=== PATIENT | female | born 1940 | race American Indian/Alaskan Native ===

== ENCOUNTER 2016-09-22 06:52 | Inpatient (IN) | payer MEDICARE ==
[2016-09-22] MEDS ORDERED: ECOTRIN PO NR (07:22)
[2016-09-22] MEDS ORDERED: K-DUR PO ONE (07:26)
[2016-09-22] MEDS ORDERED: PLAVIX PO ONE (07:38)
[2016-09-22] MEDS ORDERED: HALFPRIN EC PO ONE ×2 (07:38→07:40)
[2016-09-22] MEDS ORDERED: NACL 0.9% 500 ML 500 ML IV SCH (08:00)
[2016-09-22] MEDS ORDERED: HEPARIN 10,000 UNITS/10 ML ONE (08:17)
[2016-09-22] MEDS ORDERED: CALAN ONE (08:17)
[2016-09-22] MEDS ORDERED: HEPARIN/NS 5000 UNIT/500ML(CATH LAB) 1,000 ML IR ONE (08:17)
[2016-09-22] MEDS: VERSED ONE ×2 (08:54→09:09)
[2016-09-22] MEDS: XYLOCAINE 2% INFILTRATI ONE ×3 (08:55→09:18)
[2016-09-22] MEDS: SUBLIMAZE ONE ×3 (08:55→09:17)
[2016-09-22] MEDS: NITROGLYCERIN SYRINGE 3 ML ONE ×2 (09:14→09:36)
[2016-09-22] MEDS ORDERED: APRESOLINE ONE (09:18)
[2016-09-22] MEDS ORDERED: NACL 0.9% 100 ML ONE (09:30)
[2016-09-22] MEDS ORDERED: WATER FOR INJ (PF) 10 ML ONE (09:30)
[2016-09-22] MEDS ORDERED: HEPARIN/NS 5000 UNIT/500ML(CATH LAB) 500 ML IR ONE (09:31)
[2016-09-22] MEDS: ANGIOMAX IV ONE ×2 (09:35→09:37)
[2016-09-22] MEDS ORDERED: NITROGLYCERIN SYRINGE 3 ML ONE (09:46)
[2016-09-22] MEDS ORDERED: ALUM-MAG HYDROX-SIMETH 200-200-20MG/5ML ONE (09:50)
[2016-09-22] MEDS ORDERED: BRILINTA ONE (09:50)
[2016-09-22] MEDS ORDERED: NACL 0.9% 1000 ML 1,000 ML IV SCH (11:00)
[2016-09-22] MEDS ORDERED: HCTZ PO SCH (12:00)
--- NOTE | 2016-09-22 12:02 | Short Stay Summary ---
Short Stay Documentation Date of service: 09/22/16 - History H&P: obtained from office - Allergies and Medications Current Medications: Allergies codeine Adverse Reaction (Verified 09/22/16 08:37) Nausea Home Medications Medication Instructions Recorded Confirmed Last Taken Type Aspirin EC [Aspirin Enteric Coated 81 mg PO QDAY 05/17/13 09/22/16 09/21/16 History TAB] Carvedilol 12.5 mg PO BID 05/17/13 09/22/16 09/21/16 History Clopidogrel Bisulfate [Clopidogrel] 75 mg PO DAILY 05/17/13 09/22/16 09/21/16 History Insulin Glargine,Hum.rec.anlog 15 units SQ HS 05/17/13 09/22/16 09/21/16 History [Lantus Solostar] Lovastatin 40 mg PO HS 05/17/13 09/22/16 09/21/16 History glipiZIDE [Glipizide ER] 10 mg PO DAILY 05/17/13 09/22/16 09/21/16 History Famotidine [Pepcid] 20 mg PO BID 09/22/16 09/22/16 09/21/16 History Hydrochlorothiazide [HCTZ] 25 mg PO DAILY 09/22/16 09/22/16 09/21/16 History Lisinopril [Zestril TAB] 20 mg PO BID 09/22/16 09/22/16 09/21/16 History amLODIPine [Norvasc] 2.5 mg PO DAILY 09/22/16 09/22/16 09/21/16 History Active Medications Amlodipine Besylate (Norvasc) 2.5 mg PO DAILY [facility] Aspirin (Baby Aspirin) 81 mg PO QDAY RIAZ Carvedilol (Coreg) 12.5 mg PO BID RIAZ Famotidine (Pepcid) 20 mg PO BID RIAZ Glipizide (Glucotrol Xl) 10 mg PO QDDIAB RIAZ Hydrochlorothiazide (Hctz) 25 mg PO DAILY RIAZ Sodium Chloride (Nacl 0.9% 500 Ml) 500 mls @ 50 mls/hr IV DIRECT RIAZ Stop: 09/22/16 17:59 Last Admin: 09/22/16 07:40 Dose: 50 mls/hr Sodium Chloride (Nacl 0.9% 1000 Ml) 1,000 mls @ 75 mls/hr IV DIRECT RIAZ Stop: 09/22/16 22:59 Insulin Aspart (Novolog) 0 units SUB-Q ACHS RIAZ PRN Reason: Protocol Insulin Detemir (Levemir) 15 units SUB-Q QHS RIAZ Isosorbide Mononitrate (Imdur) 30 mg PO QDAY RIAZ Lisinopril (Zestril) 20 mg PO BID RIAZ Simvastatin (Zocor) 20 mg PO QHS RIAZ Ticagrelor (Brilinta) 90 mg PO BID RIAZ - Brief post op/procedure progress note Date of procedure: 09/22/16 Pre-op diagnosis: chest pain, dyspnea Procedure: Left heart cath and PCI of OM2 - Hospital course Hospital course: The patient is a 76 year old female with known CAD s/p PCI of the RCA in 2007, hypertension, hyperlipidemia who presented for left heart cath on 09/22/16. She underwent left heart cath and PCI of the OM2 with a BIB (Resolute 2.5 x 12). Cath revealed left main patent, LAD patent, distal 20%. RCA proximal and distal stent patent, mid diffuse 50-60%, bifurcation 50-60%. She was monitored on telemetry overnight and has remained chest pain free and hemodynamically stable. She will be discharged home today in stable condition. Follow up in the [place] office for a BMP on 09/30/16 at 10:00 am. Follow up appointment with Dr. Cody in the [place] office on 10/05/16 at 11:15 am. - Disposition Condition at discharge: Stable Disposition: DISCHARGED TO HOME OR SELFCARE - Discharge Diagnoses (1) S/P PTCA (percutaneous transluminal coronary angioplasty) Status: Acute (2) CAD (coronary artery disease) Status: Chronic Qualifiers: Coronary Disease-Associated Artery/Lesion type: C [place] vs. transplanted heart: N Associated angina: A (3) Hypertension Status: Chronic Qualifiers: Hypertension type: H (4) Diabetes Status: Chronic Qualifiers: Diabetes mellitus type: D Diabetes mellitus complication status: D Diabetes mellitus complication detail: D Diabetic retinopathy severity: D Proliferative retinopathy type: P Diabetes mellitus macular edema: D Diabetes mellitus prison insulin use: D Laterality: L Chronic kidney disease stage: C (5) Hyperlipidemia Status: Chronic Qualifiers: Hyperlipidemia type: H Short Stay Discharge Plan Activity: advance as tolerated Weight Bearing Status: Weight Bear as Tolerated Diet: low fat, low cholesterol, diabetic Wound: keep clean and dry Additional Instructions: Follow up appointment with Dr. Cody in the [place] office on 10/05/16 at 11: 15 am. Follow up with: PRIMARY CARE, [Primary Care Provider] - 7 Days Prescriptions: ISOSORBIDE MONOnitrate [Imdur ER] 30 mg PO QDAY #30 tablet Spironolactone [Aldactone] 25 mg PO QDAY #30 tablet Ticagrelor [Brilinta] 90 mg PO BID #60 tablet
--- NOTE | 2016-09-22 12:13 | Cardiac Catherization Report ---
LEFT HEART CATHETERIZATION/PERCUTANEOUS CORONARY ARTERY INTERVENTION/INTRAVASCULAR ULTRASOUND REPORT CLINICAL INFORMATION: A 76-year-old female with morbid obesity, hypertension, cholesterol, known coronary artery disease, in 2008 PCI of the RCA with drug-eluting Taxus stents, 2.75 and 2.5. Cardiac catheterization in 2012 revealed patent stents with mid section diffuse 20% and OM1 20% with patent LAD. The patient presents with shortness of breath with exertion, Barron classification 3 despite medications, beta blockers and calcium channel blockers, is here for a left heart catheterization. Left heart catheterization performed via the right femoral artery, sterile technique, local anesthesia, 5-[place] groin sheath inserted. Radial approach is unattainable. Left system engaged with a JL3.5 catheter. FINDINGS: 1. Left main is a medium to large caliber vessel that is patent. LAD is a medium caliber vessel that patent proximally and mid distally, it becomes small caliber, has a 20% lesion, diagonal 1 and diagonal 2 are small caliber vessels, patent. Circumflex and AV groove, OM1 is a small to medium caliber vessel, patent. Circ goes into a medium caliber OM2. The proximal section OM2 has an 80% lesion. Distal circ small caliber vessel, patent. RCA engaged with JR4 catheter. Proximal stent is patent. Distal stent is patent, in between, the mid has a long diffuse 50-60%. Prior to bifurcation, there is a 50% lesion of a small caliber, distal RCA has a small caliber PDA, PLV, normal LV function, EF 55-60%. LVEDP of 20-24 mmHg. LV was 200 mmHg, aortic was 202/85 mmHg. No gradient across the aortic valve on pullback. In view of recurrent symptoms and 80% lesion, mid circ, proceeded with PCI of the OM2, exchange of 5-[place] groin sheath to a 6-[place] groin sheath. 2. Engage the left system with EBU 3.5 guiding catheter and give Angiomax. 3. Crossed the distal OM2 with a short M[place] wire. 4. Intravascular ultrasound showed distal reference vessel 2.5 x 2.6, proximal 2.5 x 2.7 and significant stenosis, MLA less than 2.5 mm2. 5. Indirect stent to a drug-eluting Resolute 2.5 x 12 at 12 atmospheres. 6. Repeat angiogram with excellent angiographic result. No dissection or perforation noted. 7. Remove coronary wire, repeat angiogram, continued REBECCA 3 flow, reduced stenosis to 0%, no dissection or perforation noted. 8. 6-[place]icaraguan guiding catheter taken over a guidewire, 6-[place]icar[place] groin sheath sewn in. No hematoma. No bleeding. SUMMARY: 1. Successful PCI of the OM2 with a drug-eluting Resolute 2.5 x 12, 80% lesion with IVUS directed, MLA less than 2.5 mm2. 2. Left main patent, LAD patent, but distally 20%. 3. RCA proximal and distal stent patent, but mid diffuse 50-60%, bifurcation 50-60%. 4. Continue aspirin, add Brilinta. We will add nitrates, and the patient will have post-PCI care. Discussed this in detail with the patient and the patient's family. JOB# [id number] MARÍA/BROWN
[2016-09-22] MEDS: COREG PO SCH ×2 (13:52→22:02)
[2016-09-22] MEDS: GLUCOTROL XL PO SCH (13:52)
[2016-09-22] MEDS: NORVASC PO SCH (13:53)
[2016-09-22] MEDS ORDERED: TYLENOL PO PRN (17:04)
[2016-09-22] MEDS ORDERED: TYLENOL ONE (17:11)
[2016-09-22] MEDS: ZESTRIL PO SCH ×2 (17:21→22:02)
[2016-09-22] MEDS ORDERED: ZOCOR PO SCH (22:00)
[2016-09-22] MEDS ORDERED: NON-FORMULARY (Lovastatin [Lovastatin] 40 MG) PO SCH (22:00)
[2016-09-22] MEDS ORDERED: LEVEMIR SUB-Q SCH (22:00)
[2016-09-22] MEDS ORDERED: NON-FORMULARY (Insulin Glargine,Hum.Rec.Anlog [Lantus Solostar] 15 UNITS) SQ SCH (22:00)
[2016-09-22] MEDS: PEPCID PO SCH ×2 (22:01→23:46)
[2016-09-22] MEDS: BRILINTA PO SCH (22:01)
[2016-09-22] MEDS: NOVOLOG SUB-Q SCH (23:45)
[2016-09-23] MEDS ORDERED: AMBIEN PO ONE (00:30)
[2016-09-23 05:50] LABS: Basophils % (Auto) 0.4 % (0.0-1.8); Hematocrit 35.6 % (30.3-42.9); Hemoglobin 11.6 gm/dl (10.1-14.3); Mean Corpuscular HGB Conc 33 % (30-34); Mean Corpuscular Hemoglobin 29 pg (28-32); Mean Corpuscular Volume 88 fl (79-97); Platelet Count 267 K/mm3 (140-440); Red Blood Count 4.06 M/mm3 (3.65-5.03); White Blood Count 7.6 K/mm3 (4.5-11.0)
[2016-09-23 06:11] LABS: Creatine Kinase MB 1.1 ng/mL (0.0-4.0)
[2016-09-23 06:13] LABS: Anion Gap 17 mmol/L; BUN/Creatinine Ratio 18.33; Blood Urea Nitrogen 11 mg/dL (7-17); Calcium 8.4 mg/dL (8.4-10.2); Carbon Dioxide 25 mmol/L (22-30); Chloride 104.1 mmol/L (98-107); Creatine Kinase 176 units/L (30-135); Glucose 100 mg/dL (65-100); Potassium 3.1 mmol/L (3.6-5.0); Sodium 143 mmol/L (137-145)
--- NOTE | 2016-09-23 07:29 | Admit Criteria Form ---
Admission Criteria Documentation: TELEMETRY CARE Telemetry Admission Guidelines (Place 'X' for any and all applicable criteria): Admission to telemetry [A] may be indicated for ANY ONE of the following(1)(2)(3 )(4)(5): [X]I. Cardiac disease, including ANY ONE of the following (9)(10)(11)(12)(13 ): [ ]a) Postacute NV [ ]b) Low-risk patients with ST-segment elevation NV who have undergone successful percutaneous coronary intervention [ ]c) Unstable angina [ ]d) Suspected NV (until it is ruled out) [ ]e) Post cardiac surgery (first 48 to 72 hours unless complications occur) [ ]f) Acute arrhythmias (including significant tachycardia or bradycardia) [B] [ ]g) Firing of an implantable cardioverter defibrillator [C] [ ]h) Suspected pacemaker or implantable cardioverter defibrillator malfunction (10) [ ]i) New administration or adjustment of an antiarrhythmic drug [D ] [ ]j) Child admitted for acute congestive heart failure [ ]j) Long QT syndrome [ ]k) Advanced heart block (eg, second-degree Mobitz type II, third- degree heart block) [ ]l) Acute myocarditis or pericarditis [X]m) Short-term (ambulatory or inpatient) monitoring after a cardiac procedure as indicated by ANY ONE of the following [E]: [ ]i) Electrophysiologic studies [X]ii) Percutaneous coronary intervention with stent placement [ ]iii) Pacemaker placement with cardiac conduction defect [ ]iv) Implantable cardiac defibrillator placement [ ]II. Drug overdose or poisoning with substance that causes arrhythmias or QT prolongation (eg, phenothiazines, sympathomimetic agents, cyclic antidepressants, digitalis, antiarrhythmic drugs)(15) [ ]III. Short-term (ambulatory or inpatient) monitoring after therapeutic or diagnostic procedure requiring conscious sedation or anesthesia (eg, endoscopy, elective cardioversion) [ ]IV. Acute cerebrovascular even[F](18) [ ]V. Massive blood transfusion (eg, at least 10 units of packed red blood cells in 24 hours) [ ]. Variceal bleeding after endoscopy, sclerotherapy, or IV vasopressin [ ]VII. Uncorrected electrolyte abnormalities associated with an increased risk of dangerous arrhythmia [G]; examples include [ ]a) Hyperkalemia with attributable ECG changes [ ]b) Potassium greater than 6.5 mmol/L (mEq/L) in a patient without history of chronic renal disease [ ]c) Prolonged QT attributed to hypokalemia, hypomagnesemia, or hypocalcemia [ ]VIII.Unexplained syncope or other neurologic event suspected of being due to arrhythmia due to a finding that increases risk; examples include(19)(20)(21): [ ]a) High-risk ECG findings (eg, bifascicular block, bradycardia, abnormal QT interval, ventricular pre- excitation) [ ]b) History of previous syncope due to arrhythmia [ ]c) Abnormal ventricular function (eg, reduced ejection fraction ) [ ]d) Exertional or supine syncope [ ]e) Concerning syncope characteristics (eg, sudden loss of consciousness without prodrome) [ ]f) Family history of sudden [ ]g) Use of arrhythmogenic medication [ ]h) Suspected cardiac ischemia [ ]i) Known channelopathy (eg, long QT syndrome, Brugada syndrome, or catecholaminergic paroxysmal ventricular tachycardia) [ ]j) Known structural heart disease (eg, hypertrophic cardiomyopathy , severe valvular disease) [ ]k) Palpitations preceding syncope The original [employer] content created by [employer] has been revised. The portions of the content which have been revised are identified through the use of italic text or in bold, and [facility] has neither reviewed nor approved the modified material. All other unmodified content is copyright [employer]. Please see references footnoted in the original [employer] edition 2016 Admission Criteria Met: Yes
[2016-09-23] MEDS ORDERED: K-DUR PO ONE (08:30)
[2016-09-23] MEDS: NOVOLOG SUB-Q SCH ×2 (09:23→11:50)
[2016-09-23] MEDS: PEPCID PO SCH (09:24)
[2016-09-23] MEDS: ZESTRIL PO SCH (09:24)
[2016-09-23] MEDS: COREG PO SCH (09:25)
[2016-09-23] MEDS: NORVASC PO SCH (09:26)
[2016-09-23] MEDS: BRILINTA PO SCH (09:26)
[2016-09-23] MEDS: GLUCOTROL XL PO SCH (09:31)
[2016-09-23] MEDS ORDERED: ALDACTONE PO SCH (10:00)
[2016-09-23] MEDS ORDERED: IMDUR PO SCH (10:00)
[2016-09-23] MEDS ORDERED: BABY ASPIRIN PO SCH (10:00)
[2016-09-23] MEDS ORDERED: HALFPRIN EC PO SCH (10:00)
--- NOTE | 2016-09-23 10:14 | XRay Report ---
PORTABLE CHEST: INDICATION: Post PCI. COMPARISON: 10/24/2010 FINDINGS: Portable, frontal chest radiograph demonstrates stable cardiomediastinal silhouette/borderline cardiomegaly. Dense aortic knob calcifications. Slight hyperinflation without pleural effusions or CHF. EKG leads. Stable bones, including bilateral shoulder degenerative changes. CONCLUSION: No acute disease in the chest with few other findings, as above. Thank you for the opportunity to participate in this patient's care.
[2016-09-23 15:48] VITALS: BP 132/66
== END 2016-09-23 16:25 | disposition home or self-care (01) | DRG 247 ==
LOC: OPU 06:52 → 4A 11:05
PROVIDERS: ADMIT Internal Medicine; ATTEND Internal Medicine
PROC: 4A023N7 Measurement of Cardiac Sampling and Pressure, Left Heart, Percutaneous Approach (ICD-10-PCS; principal; 2016-09-22)
PROC: 027034Z Dilation of Coronary Artery, One Artery with Drug-eluting Intraluminal Device, Percutaneous Approach (ICD-10-PCS; 2016-09-22)
PROC: B2111ZZ Fluoroscopy of Multiple Coronary Arteries using Low Osmolar Contrast (ICD-10-PCS; 2016-09-22)
DX: I25.10 Atherosclerotic heart disease of native coronary artery without angina pectoris (principal); I10 Essential (primary) hypertension; E78.5 Hyperlipidemia, unspecified; E66.9 Obesity, unspecified; E11.51 Type 2 diabetes mellitus with diabetic peripheral angiopathy without gangrene; Z88.5 Allergy status to narcotic agent; Z95.5 Presence of coronary angioplasty implant and graft; Z68.36 Body mass index [BMI] 36.0-36.9, adult
CPT/HCPCS: 36415; 71010; 80048; 82550; 82553; 82962; 84484; 85025; 85347; 92928; 92978; 93005; 93010; 93458; C1753; C1769; C1874; C1887; C1894; C9600; J0360; J0583; J1644; J1818; J2250; J3010; J7030; J7040; Q9967